=== PATIENT | male | born 1985 | race Caucasian/White ===

== ENCOUNTER 2017-01-22 10:24 | Emergency (ER) | payer OTHER, BC ==
[2017-01-22 10:42] VITALS: BP 159/63
--- NOTE | 2017-01-22 11:31 | EDM.PDOC ---
ED HPI GENERAL MEDICAL PROBLEM - General Chief Complaint: Upper Extremity Injury/Pain Stated Complaint: LT SHOULDER PAIN Time Seen by Provider: 01/22/17 11:00 Source of Information: Reports: Patient History Limitations: Reports: No Limitations - History of Present Illness INITIAL COMMENTS - FREE TEXT/NARRATIVE: 31-year-old male presents for evaluation and treatment of injury to the left shoulder. Patient reports that he was at work 2 days ago. Said that they were lifting heavy equipment. He states he did not hear any sound such as snapping or popping. He reports lifting heavy pipe up onto his left shoulder. He states since Sunday the pain has gotten worse. Reports it is located on the top part of his left shoulder. States that he is having significant weakness and can no longer hold a coffee cup or put on his close due to the pain. Patient reports he is having trouble sleeping due to the pain. He has tried ibuprofen without any symptom relief. Denies any numbness or tingling into the arm. patient is right-handed. 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 Left Shoulder Pain Score (Numeric/FACES): 5 - Related Data Allergies Allergy/AdvReac Type Severity Reaction Status Date / Time shellfish derived Allergy Swollen Verified 01/22/17 10:42 Tongue Home Meds: Home Meds Acetaminophen/oxyCODONE [Percocet 325-5 MG] 1 tab PO Q6H #12 tablet 01/22/17 [Rx ] Naproxen 500 mg PO BID #20 tablet 01/22/17 [Rx] Orphenadrine [Norflex] 100 mg PO BID #20 tab.er 01/22/17 [Rx] Past Medical History - Past Surgical History HEENT Surgical History: Reports: Adenoidectomy, Tonsillectomy Other Musculoskeletal Surgeries/Procedures:: ACL replacement right knee Social & Family History - Tobacco Use Years of Tobacco use: 15 Packs/Tins Daily: 0.2 - Caffeine Use Caffeine Use: Reports: Coffee - Recreational Drug Use Recreational Drug Use: No Review of Systems - Review of Systems Review Of Systems: See Below Respiratory: Denies: Shortness of Breath Cardiovascular: Denies: Chest Pain Musculoskeletal: Reports: Shoulder Pain (left). Denies: Neck Pain, Joint Swelling Skin: Denies: Rash, Wound Neurological: Reports: Weakness (left arm). Denies: Numbness, Tingling Trauma Exam - Physical Exam Exam: See Below Exam Limited By: No Limitations General Appearance: Reports: Alert, WD/WN, No Apparent Distress Neck: Reports: Non-Tender, Full Range of Motion, Normal Alignment, Normal Inspection Respiratory Exam: Reports: No Respiratory Distress, Lungs Clear, Normal Breath Sounds Cardiovascular: Reports: Normal Peripheral Pulses, Regular Rate, Rhythm, No Murmur Back: Reports: Normal Inspection. Denies: Vertebral Tenderness Extremities: No Evidence of Injury (No obvious dislocation or a.c. joint separation of the left shoulder.), Pain with Movement (Left shoulder range of motion: Flexion to 60, extension to 30, adduction to 75, unable to adduct; unable to form and he can test on left due to pain. Unable to perform liftoff testing due to pain. Unable to perform neers and Gabriel sign due to pain.), Tenderness (Tenderness to palpation of the left trapezius muscle.) Neurologic: Reports: No Motor/Sensory Deficits, Alert, Normal Mood/Affect Course - Vital Signs Last Recorded V/S: Last Vital Signs Temp 36.9 C 01/22/17 10:37 Pulse 85 01/22/17 10:37 Resp 14 01/22/17 10:37 BP 159/63 H 01/22/17 10:37 Pulse Ox 100 01/22/17 10:37 - Radiology Interpretation Free Text/Narrative:: Xray of the left shoulder impression per Dr. Maldonado: 1. No abnormality is seen on three-view left shoulder study. - Re-Assessments/Exams Free Text/Narrative Re-Assessment/Exam: 01/22/17 12:08 I discussed the x-ray results with the patient and his . Given where the tenderness is located on the trapezius muscle I feel that he is suffering from muscle spasm and strain. I will prescribe him medicine to help with muscle relaxation as well as for pain control. He is instructed to followup with occupational health or family medicine. He is to return to the ER if his symptoms change or worsen. Note given for work. Discharge instructions as documented. Shoulder sling provided. Departure - Departure Time of Disposition: 12:16 Disposition: Home, Self-Care 01 Condition: fair Clinical Impression: Muscle spasm - Discharge Information Prescriptions: Acetaminophen/oxyCODONE [Percocet 325-5 MG] 1 tab PO Q6H #12 tablet Naproxen 500 mg PO BID #20 tablet Orphenadrine [Norflex] 100 mg PO BID #20 tab.er Instructions: Muscle Cramps and Spasms Referrals: PCP,None [Primary Care Provider] - Keely Mansfield PA-C [Physician Asphalt Mixer] - Forms: ED Department Discharge Additional Instructions: Take the naproxen twice a day. This is for pain and inflammation. For pain not relieved by the naproxen may take one Percocet every 4-6 hours as needed for severe pain. No driving or operating machinery within 12 hours of taking the Percocet. Percocet can be habit-forming I recommend your take as few of these as needed to control your pain. Norflex one tab twice a day. This is for muscle relaxation. This can make you drowsy. Did not drive or operate machinery until you know how this medication affects you. Use ice or moist heat to the sore area. use this 3 or 4 times a day for 10-15 minutes. Follow up with either occupational health or family medicine in 7-10 days. For family med recommend Philly Mansfield. Call [phone] to schedule with her Arm sling as needed for your pain relief and comfort. Remove the arm from the sling through 4 times a day and perform pendulum artm circles to prevent frozen shoulder. Please return to the ER should your symptoms change or worsen.
--- NOTE | 2017-01-22 11:51 | CR ---
Left shoulder: Three views of the left shoulder were obtained. Comparison: No previous study. Acromioclavicular and glenohumeral joints are unremarkable. No fracture or other abnormality is appreciated. Impression: 1. No abnormality is seen on three-view left shoulder study. Diagnostic code #1
== END 2017-01-22 12:40 | disposition home or self-care (01) ==
LOC: JD.ED 10:24
DX: M62.838 Other muscle spasm (principal); Z91.013 Allergy to seafood; Z96.651 Presence of right artificial knee joint; Z98.890 Other specified postprocedural states
CPT/HCPCS: 73030-26-LT; 73030-LT; 99283

== ENCOUNTER 2017-06-05 04:25 | Emergency (ER) | payer BC, OTHER ==
[2017-06-05 04:40] VITALS: BP 132/78
--- NOTE | 2017-06-05 05:02 | EDM.PDOC ---
ED HPI GENERAL MEDICAL PROBLEM - General Chief Complaint: Respiratory Problem Stated Complaint: COUGH SOB Time Seen by Provider: 06/05/17 04:47 Source of Information: Reports: Patient History Limitations: Reports: No Limitations - History of Present Illness INITIAL COMMENTS - FREE TEXT/NARRATIVE: The patient presents with a cough, congestion, wheezing and shortness of breath. He also has chills. He has a history of asthma and her quit smoking about 4 days ago. His symptoms started about 2 days ago. Onset: Gradual Duration: Day(s): (2) Severity: Moderate Improves with: Reports: None Worsens with: Reports: None Associated Symptoms: Reports: Cough, Fever/Chills, Shortness of Breath. Denies : Chest Pain, Nausea/Vomiting headache, chest Pain Score (Numeric/FACES): 5 - Related Data Allergies Allergy/AdvReac Type Severity Reaction Status Date / Time shellfish derived Allergy Swollen Verified 06/05/17 04:40 Tongue Home Meds: Home Meds . [No Known Home Meds] 06/05/17 [History] Past Medical History Respiratory History: Reports: Asthma, Other (See Below) Other Respiratory History: asthma as a child Endocrine/Metabolic History: Reports: Obesity/BMI 30+ - Past Surgical History HEENT Surgical History: Reports: Adenoidectomy, Tonsillectomy Other Musculoskeletal Surgeries/Procedures:: ACL replacement right knee Social & Family History - Family History Family Medical History: Noncontributory - Tobacco Use Smoking Status *Q: Former Smoker Years of Tobacco use: 8 Packs/Tins Daily: 0.2 Used Tobacco, but Quit: Yes Month Tobacco Last Used: 05/2017 - Caffeine Use Caffeine Use: Reports: Coffee, Energy Drinks, Soda, Tea - Recreational Drug Use Recreational Drug Use: No ED ROS GENERAL - Review of Systems Review Of Systems: See Below Constitutional: Reports: Chills. Denies: Fever HEENT: Reports: Other (Congestion and runny nose) Respiratory: Reports: Shortness of Breath, Wheezing, Cough Cardiovascular: Reports: No Symptoms Endocrine: Reports: No Symptoms GI/Abdominal: Reports: No Symptoms : Reports: No Symptoms ED EXAM, GENERAL - Physical Exam Exam: See Below Exam Limited By: No Limitations General Appearance: Alert, No Apparent Distress Ears: Normal External Exam, Normal Canal, Normal TMs Nose: Normal Inspection Head: Atraumatic, Normocephalic Neck: Normal Inspection Respiratory/Chest: No Respiratory Distress, Wheezing Cardiovascular: Regular Rate, Rhythm, No Edema, No Murmur GI/Abdominal: Soft, Non-Tender, No Organomegaly, No Mass Back Exam: Normal Inspection Extremities: Normal Inspection Course - Vital Signs Last Recorded V/S: Last Vital Signs Temp 97.1 F 06/05/17 04:30 Pulse 69 06/05/17 04:30 Resp 18 06/05/17 04:30 BP 132/78 06/05/17 04:30 Pulse Ox 96 06/05/17 04:30 - Re-Assessments/Exams Free Text/Narrative Re-Assessment/Exam: 06/05/17 04:59 The patient has bronchitis. I will get him on some zithromax, phenergan with codeine and an albuterol inhaler. Departure - Departure Time of Disposition: 05:00 Disposition: Home, Self-Care 01 Condition: Good Clinical Impression: Bronchitis - Discharge Information Referrals: PCP,None [Primary Care Provider] - Jane Araiza PA [Physician Tree Driller] - Forms: ED Department Discharge, ED Return to Work/School Form Additional Instructions: Take the phenergan with codeine every 6 hours as needed for cough. Take the zithromax daily for 5 days. Use the albuterol inhaler 2 puffs every 6 hours as needed for wheezing.
== END 2017-06-05 05:08 | disposition home or self-care (01) ==
LOC: JD.ED 04:25
DX: J40 Bronchitis, not specified as acute or chronic (principal); E66.9 Obesity, unspecified; Z98.890 Other specified postprocedural states; Z96.651 Presence of right artificial knee joint; Z87.891 Personal history of nicotine dependence; Z91.013 Allergy to seafood; Z68.34 Body mass index [BMI] 34.0-34.9, adult
CPT/HCPCS: 99283

== ENCOUNTER 2017-06-08 09:16 | Emergency (ER) | payer BC ==
[2017-06-08 09:32] VITALS: BP 147/82
--- NOTE | 2017-06-08 09:47 | EDM.PDOC ---
ED HPI GENERAL MEDICAL PROBLEM - General Chief Complaint: Respiratory Problem Stated Complaint: COUGH AND FEVER Time Seen by Provider: 06/08/17 09:47 Source of Information: Reports: Patient, Family (spouse) History Limitations: Reports: No Limitations - History of Present Illness INITIAL COMMENTS - FREE TEXT/NARRATIVE: 32-year-old male presents to the ED with a history of paroxysmal productive cough of greenish phlegm off and on for the last week. Associated fever and intermittent chills particular last few days. Of note the patient was started on a course of Zithromax or days ago feels unimproved. Does develop paroxysmal cough to the point that he feels like he might pass out at times. Appetite remains poor. He nausea vomiting or diarrhea. Quit smoking 8 days ago. He is aware of audible wheezing at times. He was diagnosed as asthma as a child but felt that he doubt groaning. He's been using an albuterol inhaler on a when necessary basis but finding it difficult to get it into his airway. Has been traveling into or gone over the last 3-4 weeks. Possibility of influenza exists. Onset: Sudden Onset Date: 05/31/17 Duration: Day(s): Location: Reports: Chest (paroxysmal productive cough with wheeze.) Quality: Reports: Ache, Stabbing, Other Severity: Moderate (productive cough with wheezing.) Improves with: Reports: Medication (albuterol helps a bit if he can get it in.) Worsens with: Reports: Other Context: Denies: Activity (worse when he is supine. Exposure to cold air makes it worse as well), Exercise, Lifting, Sick Contact, Trauma, Other Associated Symptoms: Reports: Cough, cough w sputum, Fever/Chills (chills particular last 2-3 days. Getting worse instead of better well-being on), Loss of Appetite, Malaise (greenish in color), Shortness of Breath, Weakness. 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: Other (see below) Chest Pain Score (Numeric/FACES): 4 - Related Data Allergies Allergy/AdvReac Type Severity Reaction Status Date / Time shellfish derived Allergy Swollen Verified 06/05/17 04:40 Tongue Home Meds: Home Meds Albuterol [IJP: Ventolin HFA] 2 puff INH Q4H PRN #18 gm 06/08/17 [Rx] Albuterol/Ipratropium [DuoNeb 3.0-0.5 MG/3 ML] 3 ml NEB Q6HRRT #30 neb 06/08/17 [Rx] Amoxicillin/Clavulanate K [Augmentin 500 MG\125 MG] 1 tab PO Q12HR #14 tablet [Rx] Codeine/Promethazine [Phenergan with Codeine] 15 ml PO Q6HR #300 ml 06/08/17 [Rx ] Prednisone [IJD: predniSONE] 20 mg PO ASDIRECTED #18 tab 06/08/17 [Rx] Past Medical History Respiratory History: Reports: Asthma, Other (See Below) Other Respiratory History: asthma as a child .has had no pneumonia diagnosed twice in the past. Endocrine/Metabolic History: Reports: Obesity/BMI 30+ - Past Surgical History HEENT Surgical History: Reports: Adenoidectomy, Tonsillectomy Other Musculoskeletal Surgeries/Procedures:: ACL replacement right knee Social & Family History - Family History Family Medical History: Noncontributory - Tobacco Use Smoking Status *Q: Former Smoker Years of Tobacco use: 8 Packs/Tins Daily: 0.2 Used Tobacco, but Quit: Yes Month Tobacco Last Used: .2 - Caffeine Use Caffeine Use: Reports: None - Recreational Drug Use Recreational Drug Use: No - Living Situation & Occupation Living situation: Reports: Occupation: Employed ED ROS GENERAL - Review of Systems Review Of Systems: See Below Constitutional: Reports: Fever, Chills, Malaise, Weakness, Fatigue, Diaphoresis , Decreased Appetite. Denies: Weight Loss HEENT: Reports: Ear Pain (right side.), Hearing Loss (hearing is a little muffled on the right ear.), Throat Pain (from coughing so much). Denies: Rhinitis, Sinus Problem Respiratory: Reports: Shortness of Breath, Wheezing, Cough, Sputum. Denies: Pleuritic Chest Pain, Hemoptysis (greenish in color) Cardiovascular: Reports: Chest Pain, Dyspnea on Exertion. Denies: Blood Pressure Problem, Edema, Lightheadedness (upper chest from coughing so much), Palpitations Endocrine: Reports: Fatigue GI/Abdominal: Reports: Decreased Appetite : Reports: No Symptoms Musculoskeletal: Reports: Muscle Pain (generalized myalgia with fever.) Skin: Reports: No Symptoms Neurological: Reports: No Symptoms, Change in Speech Hematologic/Lymphatic: Reports: No Symptoms ED EXAM, GENERAL - Physical Exam Exam: See Below Exam Limited By: No Limitations General Appearance: Alert, WD/WN, No Apparent Distress, Other (does not appear acutely ill. O2 sats are 95% on room air however.) Eye Exam: Bilateral Eye: Normal Inspection Ears: Other (he has a right serous otitis media with eardrum bulging is slightly pink in color. The left TM is normal.) Ear Exam: Right Ear: TM Red (mildly red), TM Bulging Throat/Mouth: Normal Inspection, Normal Lips, Normal Teeth, Normal Gums, Normal Oropharynx Head: Atraumatic, Normocephalic, Sinus Tenderness Neck: Normal Inspection, Supple, Non-Tender, Full Range of Motion. No: Lymphadenopathy (L), Lymphadenopathy (R) Respiratory/Chest: No Respiratory Distress, No Accessory Muscle Use, Decreased Breath Sounds (breath sounds are mildly decreased to the lower 20% of lungs posteriorly.), Rhonchi (throughout both lung bauman on expiration worse on the basis.appreciated throughout the right lung field versus the left.), Wheezing. No: Rales Cardiovascular: Normal Peripheral Pulses, Regular Rate, Rhythm, No Edema, No Gallop, No Murmur Peripheral Pulses: 3+: Posterior Tibial (L), Posterior Tibial (R), Dorsalis Pedis (L), Dorsalis Pedis (R) GI/Abdominal: Normal Bowel Sounds, Soft, Non-Tender, No Organomegaly Extremities: Normal Inspection, Normal Range of Motion, Non-Tender, No Pedal Edema Neurological: Alert, Oriented, CN II-XII Intact, Normal Cognition, Normal Gait Psychiatric: Normal Affect, Normal Mood Skin Exam: Warm, Dry, Intact, Normal Color, No Rash Course - Vital Signs Last Recorded V/S: Last Vital Signs Temp 36.2 C 06/08/17 09:28 Pulse 85 06/08/17 09:28 Resp 18 06/08/17 09:28 BP 147/82 H 06/08/17 09:28 Pulse Ox 94 L 06/08/17 09:57 - Orders/Labs/Meds Orders: Active Orders 24 hr Category Date Time Status RT Aerosol Therapy [RC] ASDIRECTED Care 06/08/17 09:57 Active CULTURE BLOOD [BC] Stat Lab 10/06/17 10:28 Received CULTURE BLOOD [BC] Stat Lab 06/08/17 10:40 Received Blood Culture x2 Reflex Set [OM.PC] Stat Oth 06/08/17 09:57 Ordered Labs: Laboratory Tests 06/08/17 06/08/17 Range/Units 10:10 10:10 WBC 10.36 H (4.23-9.07) K/mm3 RBC 5.55 (4.63-6.08) M/mm3 Hgb 16.2 (13.7-17.5) gm/L Hct 46.2 (40.1-51.0) % MCV 83.2 (79.0-92.2) fl MCH 29.2 (25.7-32.2) pg MCHC 35.1 (32.2-35.5) g/dl RDW Std Deviation 39.0 (35.1-43.9) fL Plt Count 306 (163-337) K/mm3 MPV 9.2 L (9.4-12.3) fl Neutrophils % (Manual) 63 H (40-60) % Band Neutrophils % 0 (0-10) % Lymphocytes % (Manual) 31 (20-40) % Atypical Lymphs % 0 % Monocytes % (Manual) 1 L (2-10) % Eosinophils % (Manual) 5 (0.8-7.0) % Basophils % (Manual) 0 L (0.2-1.2) Platelet Estimate Adequate Plt Morphology Comment Normal RBC Morph Comment Normal Sodium 141 (136-145) mEq/L Potassium 4.0 (3.5-5.1) mEq/L Chloride 105 (98-107) mEq/L Carbon Dioxide 25 (21-32) mEq/L Anion Gap 15.0 (5-15) BUN 12 (7-18) mg/dL Creatinine 1.0 (0.7-1.3) mg/dL Est Cr Clr Drug Dosing 109.50 mL/min Estimated GFR (MDRD) > 60 (>60) mL/min BUN/Creatinine Ratio 12.0 L (14-18) Glucose 94 (74-106) mg/dL Calcium 9.5 (8.5-10.1) mg/dL Total Bilirubin 0.4 (0.2-1.0) mg/dL AST 27 (15-37) U/L ALT 59 (16-63) U/L Alkaline Phosphatase 98 (46-116) U/L C-Reactive Protein 2.2 H* (<1.0) mg/dL Total Protein 7.7 (6.4-8.2) g/dl Albumin 3.9 (3.4-5.0) g/dl Globulin 3.8 gm/dL Albumin/Globulin Ratio 1.0 (1-2) Mycoplasma pneumon IgM Negative (NEGATIVE) Meds: Medications Discontinued Medications Generic Name Dose Route Start Last Admin Trade Name Anisa PRN Reason Stop Dose Admin Albuterol/Ipratropium 3 ml 06/08/17 09:56 06/08/17 10:07 Duoneb 3.0-0.5 Mg/3 Ml NEB 06/08/17 09:57 3 ml ONETIME ONE Administration Dextrose/Sodium Chloride 1,000 mls @ 500 mls/hr 06/08/17 10:00 06/08/17 10:14 Dextrose 5%-Normal Saline IV 500 mls/hr ASDIRECTED MARISOL Administration - Radiology Interpretation Free Text/Narrative:: 32-year-old gentleman presents to the ED with persistent fever chills associate with a productive cough of greenish sputum for the last week. Noted more to fever and chills the last 2-3 days in spite of being on Zithromax i.e. Z-Gerardo. He has 1 day left tomorrow. Paroxysmal cough. His me on minimal exertion with audible wheezing. He had asthma as a child but felt it a donut. Setting difficulty using the albuterol nebulizer lies her to reduce his symptoms mostly due to severe paroxysmal cough. Appetite remains poor. Examinationreveals rhonchi throughout his right lung field and bilateral expiratory wheeze on expiration. He does have a right serous otitis media on exam. Questionable whether he has pneumonia. The chills would suggest that he is getting intermittent mid and bacteremia. Plan DuoNeb at this time I will start IV at normal saline 500 mils per hour labs to be done including blood cultures 2. He will also be screened for influenza since he and his were out in [place] on 2-3 weeks ago. Two-view chest x-ray to be obtained. - Re-Assessments/Exams Free Text/Narrative Re-Assessment/Exam: 06/08/17 11:21White count is 10.36 with 63% neutrophils and no band cells reported hemoglobin 16.2 hematocrit 46.2. Platelets are normal at 306,000. Sodium was 141 potassium is 4.0. Toward 105 bicarbonate is 25. Anion gap is 15.0 BUNs 12. Creatinine is 1.0. GFR is greater than 60. Chemistry otherwise shows normal liver function. C-reactive protein is mildly elevated at 2.2 mycoplasma pneumonia IgM antibody is negative.two-view chest x-ray is within normal limits as well. Showing no signs of pneumonia.influenza screen was negative as well. Therefore I think his infection may well be viral. The fever and chills however are somewhat concerning as they should be settling down. Worsening of partially treated infection because he is on a Z-Gerardo. Plan I'm going to discharge him home on antibiotic Augmentin 500 mg twice daily for further 7 days to make sure we cover any upper respiratory tract infection. Will arrange for a home nebulizer treatment to use DuoNeb every [address] him on prednisone 20 mg twice a day for 5 days to improve his oxygenation and cough. Tussionex cough syrup 5 mils at bedtime primarily to relieve severe paroxysmal cough. Departure - Departure Time of Disposition: 11:31 Disposition: Home, Self-Care 01 Condition: Fair Clinical Impression: Acute bronchitis with asthma with acute exacerbation - Discharge Information Prescriptions: Codeine/Promethazine [Phenergan with Codeine] 15 ml PO Q6HR #300 ml Amoxicillin/Clavulanate K [Augmentin 500 MG\125 MG] 1 tab PO Q12HR #14 tablet Albuterol [IJP: Ventolin HFA] 2 puff INH Q4H PRN #18 gm PRN Reason: dyspnea and wheeze. Albuterol/Ipratropium [DuoNeb 3.0-0.5 MG/3 ML] 3 ml NEB Q6HRRT #30 neb Prednisone [IJD: predniSONE] 20 mg PO ASDIRECTED #18 tab Instructions: Acute Bronchitis Referrals: PCP,None [Primary Care Provider] - Forms: ED Department Discharge, ED Return to Work/School Form Additional Instructions: Evaluation in the emergency him today in regards to persistent fever and reported chills over the last week in spite of antibiotic therapy with Zithromax and cough relief with Phenergan with codeine. examination revealed congestion throughout the right lung more so than the left lung with bilateral expiratory wheezes. There is no doubt that current infection has aggravated your asthma. Lab work left S inconclusive values. White count is minimally elevated at 10.36 with a normal differential. However it may be normal because of current antibiotic treatment . The fact that you're still expansion chills suggest that you're having ongoing bacterial infection. If the right to treat with antibiotic Augmentin 500 mg twice daily for 7 days. You could finish up her last dose of Zithromax tomorrow as well. Cough syrup continue Phenergan with codeine since it seems to be working quite well 10-15 mils every 6 hours as necessary for cough relief. Suggest DuoNeb via a home nebulizer every 6 hours one ampule until you are better. I also wrote a prescription for a albuterol handheld inhaler as well. Note written to excuse her from the workplace until next Sunday. Last medicine will be prednisone 20 mg twice daily in the morning and at suppertime for 6 days then 1 in the morning only for another 6 days to open up her lungs so that you can breathe better and clear secretions better. Reduces the inflammation. Expect marked improvement over the next 72 hours.home nebulizer should be picked up at [facility] which is a building up on [address] beside [address] and [address]. They will rent the nebulizer to you for a couple of weeks. - My Orders Last 24 Hours: My Active Orders 06/08/17 09:57 RT Aerosol Therapy [RC] ASDIRECTED Blood Culture x2 Reflex Set [OM.PC] Stat 06/08/17 10:28 CULTURE BLOOD [BC] Stat 06/08/17 10:40 CULTURE BLOOD [BC] Stat - Assessment/Plan Last 24 Hours: My Active Orders 06/08/17 09:57 RT Aerosol Therapy [RC] ASDIRECTED Blood Culture x2 Reflex Set [OM.PC] Stat 06/08/17 10:28 CULTURE BLOOD [BC] Stat 06/08/17 10:40 CULTURE BLOOD [BC] Stat
[2017-06-08] MEDS ORDERED: Albuterol/Ipratropium 3.0-0.5 MG/3 ML Neb Soln NEB ONE (09:56)
[2017-06-08] MEDS ORDERED: Dextrose 5%-0.9% NaCl 1,000 ML IV SCH (10:00)
--- NOTE | 2017-06-08 10:48 | CR ---
Chest: Two views of the chest were obtained. Comparison: No prior chest x-ray. Heart size and mediastinum are normal. Lungs are clear. Bony structures are within normal limits for the patient's age. Impression: 1. Nothing acute is appreciated on two-view chest x-ray. Diagnostic code #1
== END 2017-06-08 11:55 | disposition home or self-care (01) ==
LOC: JD.ED 09:16
DX: J45.901 Unspecified asthma with (acute) exacerbation (principal); J20.9 Acute bronchitis, unspecified; Z91.013 Allergy to seafood; Z87.891 Personal history of nicotine dependence
CPT/HCPCS: 36415; 71020; 80053; 85025; 86140; 86738; 87040; 87804; 94640; 96360; 96361; 99284; J7042